=== PATIENT | male | born 1985 | race Caucasian/White ===

== ENCOUNTER 2021-11-19 12:45 | Emergency (ER) | payer MEDICARE, SELFPAY ==
[2021-11-19] VITALS (10 sets, daily range): BP systolic 111–138; BP diastolic 63–108; PULSE 60–74; RESP 16; TEMP 37; O2SAT 96–99; BMI 27.3
--- NOTE | 2021-11-19 13:21 | HMH.EDGENADL ---
ED Disposition Clinical Impression: Dental abscess Disposition: Home, Self-Care Condition on Discharge: Good Instructions: DI for Dental Pain Additional Instructions: Ibuprofen 400 600 mg 3-4 times daily as needed for discomfort. Exertion for the next week. Return for worsening pain or other concerns. Off work today. Prescriptions: Oxycodone HCl/Acetaminophen [Oxycodone-Acetaminophen 5-325] 1 each PO Q6 PRN #6 tab PRN Reason: Moderate To Severe Pain [facility] Penicillin V Potassium 500 mg PO Q6 #40 tab Transmission Status: [facility] Oxycodone HCl/Acetaminophen [Percocet 5/325mg tablet] 1 tab PO Q6H PRN #6 tab PRN Reason: Moderate To Severe Pain Transmission Status: Received by [facility] Referrals: Provider,Referral, MD [Primary Care Provider] - Forms: Work/School Release - Critical Care Critical Care Time: No Attestation: On , the high probability of a clinically significant, sudden or life threatening deterioration of the following system(s) required my full and direct attention, intervention and personal management. The time I documented below is in addition to time spent performing reported procedures but includes the following listed in this critical care notation. Medical Decision Making - Medical Records Medical records reviewed: Yes: I reviewed the patient's medical records. - Keegan Inquiry Pt receiving controlled substance: Yes Keegan was queried for this patient: Yes Risks and benefits of using a controlled substance: were discussed with pt by me Vital Signs: 11/19/21 12:46 11/19/21 13:01 11/19/21 13:11 Temperature 98.6 F Temperature Source Oral Pulse Rate 67 65 Pulse Rate [Radial] 74 Respiratory Rate 16 Blood Pressure 138/97 H 131/108 H Blood Pressure [Right Radial Artery] 128/83 Blood Pressure Mean 110 112 Blood Pressure Mean [Right Radial Artery] 98 Blood Pressure Position [Right Radial Artery] Sitting 02 Sat by Pulse Oximetry 98 96 96 Oxygen Delivery Method Room Air 11/19/21 13:21 11/19/21 13:32 11/19/21 13:42 Temperature Temperature Source Pulse Rate 66 60 67 Pulse Rate [Radial] Respiratory Rate Blood Pressure 133/78 111/63 129/79 Blood Pressure [Right Radial Artery] Blood Pressure Mean 96 79 86 Blood Pressure Mean [Right Radial Artery] Blood Pressure Position [Right Radial Artery] 02 Sat by Pulse Oximetry 97 99 99 Oxygen Delivery Method 11/19/21 13:51 11/19/21 14:01 11/19/21 14:11 Temperature Temperature Source Pulse Rate 68 61 65 Pulse Rate [Radial] Respiratory Rate Blood Pressure 135/73 135/98 H 117/82 Blood Pressure [Right Radial Artery] Blood Pressure Mean 79 107 93 Blood Pressure Mean [Right Radial Artery] Blood Pressure Position [Right Radial Artery] 02 Sat by Pulse Oximetry 96 98 99 Oxygen Delivery Method 11/19/21 14:41 Temperature 98.6 F Temperature Source Pulse Rate 65 Pulse Rate [Radial] Respiratory Rate 16 Blood Pressure 117/82 Blood Pressure [Right Radial Artery] Blood Pressure Mean Blood Pressure Mean [Right Radial Artery] Blood Pressure Position [Right Radial Artery] 02 Sat by Pulse Oximetry Oxygen Delivery Method Room Air Orders (Tests/Meds): ED MEDICATIONS Discontinued Medications Generic Name Dose Route Start Last Admin Trade Name Freq PRN Reason Stop Dose Admin Ibuprofen 800 mg 11/19/21 13:56 11/19/21 14:12 Ibuprofen 600 Mg Tablet PO 11/19/21 13:57 800 mg ONCE ONE Administration General Adult HPI - General Chief complaint: PAIN Stated complaint: Mouth/jaw pain Time Seen by Provider: 11/19/21 12:50 Mode of Arrival: Ambulatory Limitations: No Limitations Description of Symptoms (Recalled from ER Triage Doc. by RN): to ed per pvt car with c/o galen lower jaw pain, dizziness starting yesterday. denies any fever, chills, nausea, vomiting - Histor
== END 2021-11-19 14:41 | disposition home or self-care (01) ==
PROVIDERS: Emergency Provider Emergency Medicine
DX: K04.7 Periapical abscess without sinus (principal)
CPT/HCPCS: 99283

== ENCOUNTER 2023-08-03 14:26 | Outpatient (CLI) | payer MEDICAID, SELFPAY ==
[2023-08-03 18:59] LABS: Basophils # 0.1 K/mm3 (0-0.2); Basophils % 0.7 % (0.1-2.0); Eosinophils # 0.1 K/mm3 (0.0-0.4); Eosinophils % 0.7 % (0.1-12.0); Hematocrit 49.7 % (42.0-52.0); Hemoglobin 15.9 g/dL (14.1-18.0); Lymphocytes # 2.5 K/mm3 (0.7-4.5); Lymphocytes % 22.7 % (10-50); Mean Corpuscular HGB Conc 32.1 g/dL (31.8-35.4); Mean Corpuscular Hemoglobin 31.8 pg (27.0-31.2); Mean Platelet Volume 10.4 fl (7.4-10.4); Monocytes # 0.6 K/mm3 (0.1-1.0); Monocytes % 5.1 % (1.7-9.3); Neutrophils # 7.7 K/mm3 (1.8-7.8); Neutrophils % 70.7 % (37.0-80.0); Platelet Count 268 K/mm3 (142-424); Red Blood Count 5.02 M/mm3 (4.60-6.20); Red Cell Distribution Width 13.5 % (11.5-17.5); White Blood Count 10.9 K/mm3 (4.8-10.8)
[2023-08-03 19:45] LABS: Alanine Aminotransferase 19 U/L (12-78); Albumin Level 4.6 g/dl (3.5-5.0); Albumin/Globulin Ratio 1.6 (1.1-1.8); Alkaline Phosphatase 97 U/L (38-126); Anion Gap 11.5 mEq/L (5-15); Aspartate Amino Transferase 23 U/L (17-59); Bilirubin,Total 1.1 mg/dl (0.2-1.3); Blood Urea Nitrogen 15 mg/dl (9-20); Calcium 9.7 mg/dl (8.4-10.2); Carbon Dioxide 25 mmol/L (22.0-30.0); Chloride 109 mmol/L (98-107); Chol/HDL Ratio 4.1 (1-3.5); Cholesterol 226 mg/dl (140-200); Estimated Glomerular Filt Rate 85 ml/min (>60); GFR (African American) 102 ML/MIN (>60); Globulin 2.8 g/dL (1.3-3.2); Glucose 90 mg/dl (74-100); HDL Cholesterol 55 mg/dl (40-60); Potassium 4.5 mmoL/L (3.5-5.1); Sodium 141 mmol/L (136-145); Total Protein,Serum 7.4 g/dl (6.3-8.2); Triglycerides 217 mg/dl (30-150); VLDL Cholesterol 43 mg/dL (0-40)
[2023-08-03 19:56] LABS: Direct LDL Cholesterol 144.88 mg/dL (100-129)
[2023-08-03 19:59] LABS: Hemoglobin A1C 5.3 % (4.0-6.0)
[2023-08-03 20:17] LABS: Thyroid Stimulating Hormone 1.21 uIU/mL (0.465-4.68)
[2023-08-05 13:17] LABS: Anti-Centromere B Antibodies <0.2 AI (0.0-0.9); Anti-DNA (DS) Ab Qn <1 IU/mL (0-9); Anti-Jo-1 <0.2 AI (0.0-0.9); Anti-Smith Antibody <0.2 AI (0.0-0.9); Antichromatin Antibodies <0.2 AI (0.0-0.9); Antiscleroderma-70 Antibodies <0.2 AI (0.0-0.9); RNP Antibodies 0.2 AI (0.0-0.9); Sjogren's Anti-SS-A <0.2 AI (0.0-0.9); Sjogren's Anti-SS-B <0.2 AI (0.0-0.9)
== END 2023-08-03 23:59 | disposition home or self-care (01) ==
LOC: LAB.DROPOF 08-04 14:27
PROVIDERS: PCP Nurse Practitioner; Visit Provider Nurse Practitioner
DX: R00.2 Palpitations (principal); R07.9 Chest pain, unspecified; R42 Dizziness and giddiness; R35.0 Frequency of micturition; R63.1 Polydipsia; Z13.1 Encounter for screening for diabetes mellitus
CPT/HCPCS: 80050; 80053; 80061; 83036; 84443; 85025; 86225; 86235